=== PATIENT | male | born 1965 | race Hispanic/Latino ===

== ENCOUNTER 2017-11-11 13:06 | Emergency (ER) | payer MEDICAID, OTHER, SELFPAY ==
[2017-11-11] MEDS ORDERED: KETOROLAC TROMETHAMINE 60 MG/2 ML VIAL ONE (14:58)
[2017-11-11 15:14] LABS: APPEARANCE,URINE Clear (CLEAR); BILIRUBIN,URINE Negative (NEGATIVE); COLOR,URINE Yellow (YELLOW); GLUCOSE, URINE (UA) Negative (NEGATIVE); KETONES,URINE 15 mg/dL (NEGATIVE); LEUKOCYTE ESTERASE ,URINE Negative (NEGATIVE); NITRATE,URINE Negative (NEGATIVE); OCCULT BLOOD,URINE Negative (NEGATIVE); PROTEIN,URINE Negative (NEGATIVE); UROBILINOGEN,URINE 0.2 mg/dL (0.2-1.0)
== END 2017-11-11 16:05 | disposition home or self-care (01) ==
LOC: EDH 13:06
DX: N50.3 Cyst of epididymis (principal); E78.5 Hyperlipidemia, unspecified
CPT/HCPCS: 76870; 81003; 87486; 87797; 96372; 99285; J1885

== ENCOUNTER 2017-11-17 11:07 | Emergency (ER) | payer OTHER, SELFPAY | END 2017-11-17 11:31 | disposition home or self-care (01) | LOC: EDH 11:07 | DX: N50.3 Cyst of epididymis (principal); E78.5 Hyperlipidemia, unspecified; Z87.891 Personal history of nicotine dependence | CPT/HCPCS: 99281 ==